=== PATIENT | male | born 1995 | race Caucasian/White ===

== ENCOUNTER 2021-02-08 22:37 | Emergency (ER) | payer BC, SELFPAY ==
[2021-02-08 23:00] VITALS: BP 137/88; PULSE 92; RESP 18; TEMP 37.1; O2SAT 97
[2021-02-08 23:02] VITALS: BP 137/88; PULSE 92; RESP 18; TEMP 37.1; O2SAT 97
--- NOTE | 2021-02-08 23:09 | XRR_ITS ---
PROCEDURE INFORMATION: Exam: XR Chest Exam date and time: 02/08/2021 11:09 PM Age: 25 years old Clinical indication: Cough and shortness of breath; Additional info: Cough, pain with inspiration, left side TECHNIQUE: Imaging protocol: XR of the chest. Views: 1 view. COMPARISON: CR Shoulder 2+ views LEFT* [id number] 10/09/2014 2:20 PM FINDINGS: Lungs: Unremarkable. No consolidation. Pleural spaces: Unremarkable. No pleural effusion. No pneumothorax. Heart/Mediastinum: Unremarkable. No cardiomegaly. Bones/joints: Unremarkable. XR/XR chest 1V portable [id number] IMPRESSION: No acute findings. Radiation Dose CTDIVOL = (mGy): DLP = (mGy-cm)
--- NOTE | 2021-02-08 23:10 | W.ED.GENADLT ---
HPI - General Adult General: Chief complaint: General Medical Stated complaint: Left ABD Pain Time Seen by Provider: 02/08/21 22:43 History of Present Illness: HPI narrative: Patient states had a cough for the last 2 or 3 days and hurts when he coughs or takes a deep breath sometimes on his left rib cage area. Denies any fever chills or any other illness. Pain started today. MD complaint: Rib pain Onset (ago): hour(s) Location: chest Radiation: non-radiation Severity: mild Severity scale (1-10): 2 Quality: sharp Pain Consistency: intermittent Exacerbating factors: other (Cough) Associated symptoms: Reports cough and other (Nasal congestion); Deny chest pain, headache(s), rash or vomiting Review of Systems Const: Denies: fever(s), chills or body aches Eyes: Denies: eye discharge ENMT: Reports: nasal congestion; Denies: throat pain or oral sores Card: Denies: chest pain or dyspnea on exertion Resp: Reports: non-productive cough; Denies: wheezing or stridor GI: Denies: vomiting or diarrhea : Denies: difficulty urinating Musc: Denies: extremity pain Skin/Breast: Denies: rash Neuro: Denies: headache(s) Psych: Denies: anxiety or depression Og/Lymph: Denies: easy bruising Physical Exam Const: COMMON NORMALS: no acute distress (Child appears very well is playful in no distress) and patient oriented x3 GENERAL APPEARANCE: cooperative HENMT: COMMON NORMALS: normocephalic, external ears normal, EAC's normal, TM's normal bilaterally and Normal external nose present HEAD & SCALP: normal to inspection and normocephalic FACE & SINUS: normal facial exam NOSE: Normal external nose present and No nasal discharge present EXTERNAL EAR: Yes external ears normal EXTERNAL AUDITORY CANAL: EAC's normal TYMPANIC MEMBRANE: TM's normal bilaterally MOUTH: Normal oral and palatal mucosa present THROAT: posterior oropharynx normal Eye: COMMON NORMALS: conjunctivae normal GENERAL EYE: appearance normal, both eyes and all related structures CONJUNCTIVA: Yes conjunctivae normal Neck/C-Spine: COMMON NORMALS: no JVD Lymph: LYMPHATIC: no lymphadenopathy noted Chest: COMMONS NORMALS: normal inspection of the chest OTHER: Tenderness left lower rib cage slight no bruising swelling noted. Lungs sound normal. Resp: COMMON NORMALS: normal respiratory effort, No retractions, No use of accessory muscles and clear to auscultation bilaterally AUSCULTATION: clear to auscultation bilaterally Cardio: COMMON NORMALS: no JVD, regular rate and regular rhythm RATE: regular rate RHYTHM: regular rhythm GI: COMMON NORMALS: Normal to inspection, nondistended, normoactive bowel sounds present Extremity: COMMON NORMALS: normal to inspection Neuro: COMMON NORMALS: patient oriented x3 Skin: COMMON NORMALS: no rashes or lesions noted GENERAL SKIN EXAM: no rashes or lesions noted Course Vital Signs: Vital signs: Vital Signs Temperature 98.7 F 02/08/21 23:00 Pulse Rate 92 02/08/21 23:00 Respiratory Rate 18 02/08/21 23:00 Blood Pressure 137/88 02/08/21 23:00 Pulse Oximetry 97 02/08/21 23:00 Coding Level of Care Code ED Textiles Printer for Vipul Smith
[2021-02-08] MEDS: CELEcoxib 200 mg Capsule 400 MG PO (23:30)
[2021-02-08 23:41] VITALS: BP 137/88; PULSE 92; RESP 18; TEMP 37.1; O2SAT 97
== END 2021-02-08 23:33 | disposition home or self-care (01) ==
PROVIDERS: Emergency Provider Nurse Practitioner Family
DX: R10.9 Unspecified abdominal pain (principal)
CPT/HCPCS: 71045; 99283

== ENCOUNTER 2021-09-02 20:20 | Emergency (ER) | payer SELFPAY ==
[2021-09-02 20:40] VITALS: BP 140/87; PULSE 90; RESP 18; TEMP 37.2; O2SAT 98
[2021-09-02 22:09] LABS: Add Urine Microscopic? NO; Charge for UA Resulting for Rev
[2021-09-02 22:10] LABS: Basophils # 0.1 10^3/uL (0.0-0.1); Basophils % 0.7 %; Eosinophils # 0.3 10^3/uL (0.0-0.8); Eosinophils % 3.5 %; Hematocrit 48.9 % (42.0-52.0); Hemoglobin 16.8 g/dL (11.7-16.6); Lymphocytes # 1.8 10^3/uL (0.8-4.8); Lymphocytes % 24.8 %; Mean Corpuscular HGB Conc 34.4 g/dL (30.0-36.0); Mean Corpuscular Hemoglobin 29.4 pg (28.0-34.0); Mean Corpuscular Volume 85.5 fl (80-94); Mean Platelet Volume 9.8 fL (7.4-10.4); Monocytes # 0.5 10^3/uL (0.2-0.9); Monocytes % 6.9 %; Neutrophils # 4.52 10^3/uL (1.8-7.7); Neutrophils % 63.8 %; Nucleated Red Blood Cells % 0 %; Platelet Count 290 10^3/cmm (130-400); Red Blood Count 5.72 10^6/uL (4.1-5.3); Red Cell Distribution Width 11.9 % (12.1-15.1); White Blood Count 7.1 10^3/uL (4.0-10.0)
[2021-09-02 22:20] LABS: Bilirubin Urine 1+ (Negative); Blood Urine Neg (Negative); Glucose Urine UA Norm (Normal); Ketones Urine Negative (Negative); Leukocyte Esterase Urine Negative (Negative); Nitrate Urine Negative (Negative); Protein Urine Neg (Negative); Specific Gravity, Urine 1.025 (1.005-1.030); Urine Appearance Clear (CLEAR); Urine Color Yellow (Yellow); Urobilinogen Urine 4 mg/dL (Negative); pH Urine 5 (5-7)
[2021-09-02 22:27] LABS: Anion Gap 14.9 (5-19); Blood Urea Nitrogen 10 mg/dL (6-20); Calcium 9.5 mg/dL (8.5-10.5); Carbon Dioxide 24 mmol/L (22-29); Chloride 106 mmol/L (98-107); Glomerular Filtration Rate 162.9 mL/min (90-130); Glucose 99 mg/dL (65-115); Osmolality Calculated 291 mOsm/kg (285-295); Potassium 3.9 mmol/L (3.5-5.1); Sodium 141 mmol/L (136-145)
--- NOTE | 2021-09-03 02:14 | ED_ITS ---
HPI - Back Pain/Injury General: Chief Complaint: Back Pain/Injury Stated Complaint: Low back pain Time Seen by Provider: 09/02/21 22:11 History of Present Illness: Patient is a 26-year-old male who comes to the ED with lower back pain. Symptoms started around noon today. He says he was sitting watching TV he started feeling some pain in his lower back that radiates down into his left leg. He rates the pain currently a 10 out of 10. weightbearing or movement of torso causes worsening of symptoms. Denies any weakness to lower extremities, bladder or bowel incontinence or any pelvic anesthesia. Associated symptoms: Deny abdominal pain, chills, dysuria, fatigue, fever(s), hematuria, nausea or vomiting Review of Systems Const: Denies: fever(s), chills or fatigue Eyes: Denies: change in vision or eye discomfort ENMT: Denies: throat pain, odynophagia, nasal discharge or nasal congestion Card: Denies: chest pain, palpitations, edema, swelling of feet/ankles, dyspnea on exertion or orthopnea Resp: Denies: dyspnea, productive cough or non-productive cough GI: Denies: abdominal pain, nausea, vomiting, diarrhea, constipation or hematochezia : Denies: flank pain, difficulty urinating, dysuria or hematuria Musc: Reports: back pain; Denies: neck pain or extremity swelling Skin/Breast: Denies: rash or new lesions Neuro: Denies: headache(s), numbness in extremities or weakness in extremities PFS ED PFSH: Medical History No pertinent family history Surgical History No pertinent past surgical history Physical Exam Const: COMMON NORMALS: no acute distress, patient oriented x3 and alert GENERAL APPEARANCE: cooperative HENMT: COMMON NORMALS: normocephalic HEAD & SCALP: normocephalic MOUTH: Normal oral and palatal mucosa present THROAT: posterior oropharynx normal and uvula midline Eye: COMMON NORMALS: Equal, round and reactive pupils present PUPIL: Yes Equal, round and reactive pupils present Neck/C-Spine: COMMON NORMALS: supple GENERAL: Yes normal visual inspection Resp: COMMON NORMALS: normal respiratory effort, No retractions, No use of accessory muscles and clear to auscultation bilaterally AUSCULTATION: clear to auscultation bilaterally Cardio: COMMON NORMALS: regular rate, regular rhythm, S1 normal heart sound present, S2 normal heart sound present, No gallops present (Cardio), No clicks present (Cardio), No murmurs present (Cardio) and Peripheral pulses 2+ throughout RATE: regular rate RHYTHM: regular rhythm HEART SOUNDS: S1 normal heart sound present and S2 normal heart sound present PERIPHERAL PULSES: Peripheral pulses 2+ throughout GI: COMMON NORMALS: Normal to inspection, nondistended, normoactive bowel sounds present, Soft to palpation, non-tender and no masses PALPATION: Yes Soft to palpation : COMMON NORMALS: Yes no CVA tenderness BLADDER/KIDNEY EXAM: Yes no CVA tenderness Back/Pelvis: COMMON NORMALS: no CVA tenderness LUMBAR SPINE/LOWER BACK: Yes pain with ROM, No lumbar spinal tenderness and Yes paraspinal muscle tenderness Lumbar paraspinal muscle tenderness: bilateral Bilateral lumbar paraspinal muscle tenderness: L4 and L5 Extremity: COMMON NORMALS: normal to inspection Neuro: COMMON NORMALS: patient oriented x3 and moves all extremities SENSORIUM/ORIENTATION: Yes alert Skin: GENERAL SKIN EXAM: dry skin Course Vital Signs: Vital signs: Vital Signs Temperature 98.7 F 09/03/21 03:11 Pulse Rate 86 09/03/21 03:11 Respiratory Rate 18 09/03/21 03:11 Blood Pressure 139/81 09/03/21 03:11 Pulse Oximetry 99 09/03/21 03:11 MDM - Back Pain/Injury Medical Decision Making Patient is a 26-year-old male comes to the ED with lower back pain that radiates down into left leg. Denies any cauda equina symptoms. Denies any acute fall, trauma or injury to cause symptoms. Vitals are stable. Labs are unremarkable. Patient has some bilateral lumbar paraspinal muscle tenderness. No other acute exam findings. Patient diagnosed with lumbar radiculopathy and was given a dose of Toradol, Solu-Medrol and muscle relaxer here in the ED. Patient was discharged home with a prescription for Celebrex, Flexeril and prednisone. Told to follow-up with PCP in the next week for reevaluation. Return to ED precautions given. Patient understood and agreed with plan. Labs I reviewed the patient's lab results. : 09/02/21 21:59 09/02/21 21:59 Laboratory Results WBC 7.1 10^3/uL (4.0-10.0) 09/02/21 21:59 RBC 5.72 10^6/uL (4.1-5.3) H 09/02/21 21:59 Hgb 16.8 g/dL (11.7-16.6) H 09/02/21 21:59 Hct 48.9 % (42.0-52.0) 09/02/21 21:59 MCV 85.5 fl (80-94) 09/02/21 21:59 MCH 29.4 pg (28.0-34.0) 09/02/21 21:59 MCHC 34.4 g/dL (30.0-36.0) 09/02/21 21:59 RDW 11.9 % (12.1-15.1) L 09/02/21 21:59 Plt Count 290 10^3/cmm (130-400) 09/02/21 21:59 MPV 9.8 fL (7.4-10.4) 09/02/21 21:59 Neut % (Auto) 63.8 % 09/02/21 21:59 Lymph % (Auto) 24.8 % 09/02/21 21:59 [place] % (Auto) 6.9 % 09/02/21 21:59 Eos % (Auto) 3.5 % 09/02/21 21:59 Baso % (Auto) 0.7 % 09/02/21 21:59 Neut # (Auto) 4.52 10^3/uL (1.8-7.7) 09/02/21 21:59 Lymph # (Auto) 1.8 10^3/uL (0.8-4.8) 09/02/21 21:59 [place] # (Auto) 0.5 10^3/uL (0.2-0.9) 09/02/21 21:59 Eos # (Auto) 0.3 10^3/uL (0.0-0.8) 09/02/21 21:59 Baso # (Auto) 0.1 10^3/uL (0.0-0.1) 09/02/21 21:59 Nucleated RBC % (auto) 0 % 09/02/21 21:59 Nucleated RBCs # 0.0 /100WBC 09/02/21 21:59 Sodium 141 mmol/L (136-145) 09/02/21 21:59 Potassium 3.9 mmol/L (3.5-5.1) 09/02/21 21:59 Chloride 106 mmol/L (98-107) 09/02/21 21:59 Carbon Dioxide 24 mmol/L (22-29) 09/02/21 21:59 Anion Gap 14.9 (5-19) 09/02/21 21:59 BUN 10 mg/dL (6-20) 09/02/21 21:59 Creatinine 0.6 mg/dL (0.7-1.2) L 09/02/21 21:59 GFR Calculation 162.9 mL/min (90-130) H 09/02/21 21:59 Glucose 99 mg/dL (65-115) 09/02/21 21:59 Calculated Osmolality 291 mOsm/kg (285-295) 09/02/21 21:59 Calcium 9.5 mg/dL (8.5-10.5) 09/02/21 21:59 Urine Color Yellow (Yellow) 09/02/21 21:59 Urine Appearance Clear (CLEAR) 09/02/21 21:59 Urine pH 5 (5-7) 09/02/21 21:59 Ur Specific [place] 1.025 (1.005-1.030) 09/02/21 21:59 Urine Protein Neg (Negative) 09/02/21 21:59 Urine Glucose (UA) Norm (Normal) 09/02/21 21:59 Urine Ketones Negative (Negative) 09/02/21 21:59 Urine Blood Neg (Negative) 09/02/21 21:59 Urine Nitrate Negative (Negative) 09/02/21 21:59 Urine Bilirubin 1+ (Negative) H 09/02/21 21:59 Urine Urobilinogen 4 mg/dL (Negative) H 09/02/21 21:59 Ur Leukocyte Esterase Negative (Negative) 09/02/21 21:59 Discharge Plan Discharge Patient Disposition: Home Clinical Impression: Lumbar radiculopathy Condition: Stable Prescriptions: New prednisone 20 mg tablet 20 mg PO BID 7 Days Qty: 14 0RF Celebrex 100 mg capsule 100 mg PO BID PRN (Reason: pain) Qty: 30 0RF cyclobenzaprine 7.5 mg tablet 7.5 mg PO BID PRN (Reason: muscle spasm) Qty: 20 0RF Discharge Orders: Discharge ED (Routine); Ordered 09/03/21 Ordered By: Danilo Cha Discharge Diet: Regular Discharge Activity: Increase activity as tolerated Patient Instructions: Lumbar Radiculopathy (ED) Activity Restrictions/Additional Instructions: Follow-up with medical provider as directed in the next 5 to 7 days for reevaluation. Take medications as prescribed. Apply cold pack on lower back multiple times throughout the day and perform lower back stretches daily to help with symptoms. Return to the ER or your medical provider if condition worsens. Please read and understand discharge instructions. Thank you for choosing [facility] for your healthcare needs today. Please realize this is an emergency room and that we are providing you with a medical screening exam and this may not be complete and all inclusive of all the testing and or work up that you may need to determine your ailment or severity of your illness. It is very important that you follow up as instructed or that you return to the Emergency Department should you have concerns or if your condition changes or worsens in any way. Coding Level of Care Code ED Money Laundering Investigator for Vipul Smith
[2021-09-03] MEDS: ketorolac 60 mg/2 mL INJ IM (02:56)
[2021-09-03] MEDS: orphenadrine 30 mg/mL Inj 2 mL 60 MG IM (02:56)
[2021-09-03 03:11] VITALS: BP 139/81; PULSE 86; RESP 18; TEMP 37.1; O2SAT 99
== END 2021-09-03 03:12 | disposition home or self-care (01) ==
PROVIDERS: Emergency Medicine; Emergency Provider Physician Assistant
DX: M54.16 Radiculopathy, lumbar region (principal)
CPT/HCPCS: 80048; 81003; 85025; 96372; 99284; J1885; J2360; J2930

== ENCOUNTER 2021-11-17 11:20 | Emergency (ER) | payer SELFPAY ==
[2021-11-17 12:08] VITALS: BP 149/102; PULSE 81; RESP 16; TEMP 36.5; O2SAT 98; BMI 41.4
--- NOTE | 2021-11-17 12:18 | XRR_ITS ---
PROCEDURE INFORMATION: Exam: XR Chest Exam date and time: 11/17/2021 12:31 PM Age: 26 years old Clinical indication: Pain; Angina pectoris; Additional info: Chest pain TECHNIQUE: Imaging protocol: Radiologic exam of the chest. Views: 1 view. COMPARISON: CR (CHEST, ) 02/08/2021 11:15 PM FINDINGS: Lungs: Left lower lobe atelectasis versus minimal infiltrate. Pleural spaces: Unremarkable. No pleural effusion. No pneumothorax. Heart/Mediastinum: Unremarkable. No cardiomegaly. Bones/joints: Unremarkable. XR/XR chest 1V portable [id number] IMPRESSION: Left lower lobe atelectasis versus minimal infiltrate.
--- NOTE | 2021-11-17 12:23 | ECG_ITS ---
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 Measurements Intervals [place] Rate: 86 P: 55 [place]: 145 QRS: 52 QRSD: 93 T: 62 QT: 325 QTc: 389 Interpretive Statements SINUS RHYTHM No previous ECG available for comparison Electronically Signed On 11-17-2021 17:44:51 CDT by Reji Venegas M.D. [id number]
[2021-11-17 12:47] VITALS: BP 146/88; PULSE 92; RESP 18; TEMP 36.7; O2SAT 97
[2021-11-17 14:14] VITALS: BP 161/87; PULSE 78; RESP 16; TEMP 36.7; O2SAT 96
--- NOTE | 2021-11-17 14:18 | ECG_ITS ---
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 Measurements Intervals [place] Rate: 73 P: 51 PA: 139 QRS: 49 QRSD: 92 T: 59 QT: 336 QTc: 372 Interpretive Statements SINUS RHYTHM Compared to ECG 11/17/2021 12:23:20 No significant changes Electronically Signed On 11-17-2021 17:49:18 CDT by Reji Venegas M.D. [id number]
[2021-11-17 14:41] LABS: Basophils # 0.1 10^3/uL (0.0-0.1); Basophils % 1.2 %; Eosinophils # 0.2 10^3/uL (0.0-0.8); Eosinophils % 3.9 %; Hematocrit 46.1 % (42.0-52.0); Hemoglobin 16.3 g/dL (11.7-16.6); Lymphocytes # 1.3 10^3/uL (0.8-4.8); Lymphocytes % 24.4 %; Mean Corpuscular HGB Conc 35.4 g/dL (30.0-36.0); Mean Corpuscular Hemoglobin 29.3 pg (28.0-34.0); Mean Corpuscular Volume 82.8 fl (80-94); Mean Platelet Volume 9.8 fL (7.4-10.4); Monocytes # 0.3 10^3/uL (0.2-0.9); Monocytes % 6.3 %; Neutrophils # 3.28 10^3/uL (1.8-7.7); Nucleated Red Blood Cells % 0 %; Platelet Count 261 10^3/cmm (130-400); Red Blood Count 5.57 10^6/uL (4.1-5.3); Red Cell Distribution Width 12.1 % (12.1-15.1); White Blood Count 5.1 10^3/uL (4.0-10.0)
[2021-11-17 14:56] LABS: Alanine Aminotransferase 53 U/L (0-41); Albumin Level 4.8 g/dL (3.5-5.2); Alkaline Phosphatase 97 U/L (40-130); Anion Gap 17.1 (5-19); Aspartate Amino Transferase 31 U/L (0-40); Blood Urea Nitrogen 9 mg/dL (6-20); Calcium 9.8 mg/dL (8.5-10.5); Carbon Dioxide 24 mmol/L (22-29); Chloride 101 mmol/L (98-107); Globulin 2.6 g/dL (1.3-4.6); Glucose 90 mg/dL (65-115); Osmolality Calculated 284 mOsm/kg (285-295); Potassium 4.1 mmol/L (3.5-5.1); Sodium 138 mmol/L (136-145); Total Bilirubin 0.5 mg/dL (0.15-1.2); Total Protein 7.4 g/dL (6.6-8.7)
[2021-11-17 15:04] LABS: Troponin(5th) Baseline 6 ng/L (0-15)
[2021-11-17 15:07] LABS: Slide Review Slide Review Perform
[2021-11-17 15:44] VITALS: BP 131/84; PULSE 80; RESP 16; O2SAT 97
--- NOTE | 2021-11-17 16:22 | W.ED.CHESTPA ---
HPI - Chest Pain General: Chief Complaint: Chest Pain Stated Complaint: Chest pains Time Seen by Provider: 11/17/21 15:29 History of Present Illness: Patient is a 26-year-old male comes to the ED with chest pain. Symptoms started last night after he ate some spaghetti. He describes the pain as a stabbing sharp type pain in the middle of his chest. Pain radiates to his back. He rates the pain currently a 10 out of 10. Denies any diaphoresis, nausea or vomiting or shortness of breath. He has never had chest pain like this before. Associated symptoms: Deny abdominal pain, dyspnea, fever(s), nausea, palpitations or vomiting Review of Systems Const: Denies: fever(s), chills or fatigue Eyes: Denies: change in vision or eye discomfort ENMT: Denies: throat pain, odynophagia, nasal discharge or nasal congestion Card: Reports: chest pain; Denies: palpitations, edema, swelling of feet/ankles, dyspnea on exertion or orthopnea Resp: Denies: dyspnea, productive cough or non-productive cough GI: Denies: abdominal pain, nausea, vomiting, diarrhea, constipation or hematochezia : Denies: flank pain, difficulty urinating, dysuria or hematuria Musc: Denies: neck pain, back pain or extremity swelling Skin/Breast: Denies: rash or new lesions Neuro: Denies: headache(s), numbness in extremities or weakness in extremities PFS ED PFSH: Medical History No pertinent family history Surgical History No pertinent past surgical history Physical Exam Const: COMMON NORMALS: no acute distress, patient oriented x3 and alert GENERAL APPEARANCE: cooperative and comfortable HENMT: COMMON NORMALS: normocephalic HEAD & SCALP: normocephalic MOUTH: Normal oral and palatal mucosa present THROAT: posterior oropharynx normal and uvula midline Neck/C-Spine: COMMON NORMALS: supple GENERAL: Yes normal visual inspection Resp: COMMON NORMALS: normal respiratory effort, No retractions, No use of accessory muscles and clear to auscultation bilaterally AUSCULTATION: clear to auscultation bilaterally Cardio: COMMON NORMALS: regular rate, regular rhythm, S1 normal heart sound present, S2 normal heart sound present, No gallops present (Cardio), No clicks present (Cardio), No murmurs present (Cardio) and Peripheral pulses 2+ throughout RATE: regular rate RHYTHM: regular rhythm HEART SOUNDS: S1 normal heart sound present and S2 normal heart sound present PERIPHERAL PULSES: Peripheral pulses 2+ throughout GI: COMMON NORMALS: Normal to inspection, nondistended, normoactive bowel sounds present, Soft to palpation, non-tender and no masses PALPATION: Yes Soft to palpation : COMMON NORMALS: Yes no CVA tenderness BLADDER/KIDNEY EXAM: Yes no CVA tenderness Back/Pelvis: COMMON NORMALS: no CVA tenderness Extremity: COMMON NORMALS: normal to inspection Neuro: COMMON NORMALS: patient oriented x3 SENSORIUM/ORIENTATION: Yes alert GAIT: Yes Normal gait present Skin: GENERAL SKIN EXAM: dry skin Course ED course: After patient received GI cocktail his chest pain improved greatly and is feeling a lot better. Vital Signs: Vital signs: Vital Signs Temperature 98.1 F 11/17/21 14:14 Pulse Rate 77 11/17/21 17:15 Respiratory Rate 16 11/17/21 17:15 Blood Pressure 157/80 11/17/21 17:15 Pulse Oximetry 97 11/17/21 17:15 Oxygen Delivery Me thod 11/17/21 17:15 MDM - Chest Pain Medical Decision Making Patient is a 26-year-old male comes to the ED with chest pain that started last night. Pain was located in the of his chest and he describes as a sharp pain that started after he ate spaghetti last night. Chest pain worsens when he lays down. Vitals are stable patient appears nontoxic in no acute distress or pain. Rest of exam is benign. CBC and CMP were unremarkable. Troponin negative. Chest x-ray shows a little left lower lobe atelectasis but no other acute finding. EKG showed normal sinus rhythm with no ST segment ovation depression seen. Patient was given GI cocktail and his symptoms improved greatly. Chest pain likely related to acid reflux. He was stable for discharge home and sent home with a prescription for Pepcid. Told to follow-up with PCP within the next 7 to 10 days for reevaluation. Return to ED precautions given. Patient understood and agreed with plan. Lab Data I reviewed the patient's lab results. : 11/17/21 14:19 11/17/21 14:19 Radiology Impressions Chest X-Ray 11/17/21 12:18 IMPRESSION: Left lower lobe atelectasis versus minimal infiltrate. Laboratory Results WBC 5.1 10^3/uL (4.0-10.0) 11/17/21 14:19 RBC 5.57 10^6/uL (4.1-5.3) H 11/17/21 14:19 Hgb 16.3 g/dL (11.7-16.6) 11/17/21 14:19 Hct 46.1 % (42.0-52.0) 11/17/21 14:19 MCV 82.8 fl (80-94) 11/17/21 14:19 MCH 29.3 pg (28.0-34.0) 11/17/21 14:19 MCHC 35.4 g/dL (30.0-36.0) 11/17/21 14:19 RDW 12.1 % (12.1-15.1) 11/17/21 14:19 Plt Count 261 10^3/cmm (130-400) 11/17/21 14:19 MPV 9.8 fL (7.4-10.4) 11/17/21 14:19 Neut % (Auto) 64.0 % 11/17/21 14:19 Lymph % (Auto) 24.4 % 11/17/21 14:19 [place] % (Auto) 6.3 % 11/17/21 14:19 Eos % (Auto) 3.9 % 11/17/21 14:19 Baso % (Auto) 1.2 % 11/17/21 14:19 Neut # (Auto) 3.28 10^3/uL (1.8-7.7) 11/17/21 14:19 Lymph # (Auto) 1.3 10^3/uL (0.8-4.8) 11/17/21 14:19 [place] # (Auto) 0.3 10^3/uL (0.2-0.9) 11/17/21 14:19 Eos # (Auto) 0.2 10^3/uL (0.0-0.8) 11/17/21 14:19 Baso # (Auto) 0.1 10^3/uL (0.0-0.1) 11/17/21 14:19 Nucleated RBC % (auto) 0 % 11/17/21 14:19 Nucleated RBCs # 0.0 /100WBC 11/17/21 14:19 Sodium 138 mmol/L (136-145) 11/17/21 14:19 Potassium 4.1 mmol/L (3.5-5.1) 11/17/21 14:19 Chloride 101 mmol/L (98-107) 11/17/21 14:19 Carbon Dioxide 24 mmol/L (22-29) 11/17/21 14:19 Anion Gap 17.1 (5-19) 11/17/21 14:19 BUN 9 mg/dL (6-20) 11/17/21 14:19 Creatinine 0.5 mg/dL (0.7-1.2) L 11/17/21 14:19 GFR Calculation 201.0 mL/min (90-130) H 11/17/21 14:19 Glucose 90 mg/dL (65-115) 11/17/21 14:19 Calculated Osmolality 284 mOsm/kg (285-295) L 11/17/21 14:19 Calcium 9.8 mg/dL (8.5-10.5) 11/17/21 14:19 Total Bilirubin 0.5 mg/dL (0.15-1.2) 11/17/21 14:19 AST 31 U/L (0-40) 11/17/21 14:19 ALT 53 U/L (0-41) H 11/17/21 14:19 Alkaline Phosphatase 97 U/L (40-130) 11/17/21 14:19 Troponin T Baseline 6 ng/L (0-15) 11/17/21 14:19 Troponin T 120 Minute 6.00 ng/L (0-15) 11/17/21 16:40 Delta Troponin T 0 ABS# (0-10) 11/17/21 16:40 Total Protein 7.4 g/dL (6.6-8.7) 11/17/21 14:19 Albumin 4.8 g/dL (3.5-5.2) 11/17/21 14:19 Globulin 2.6 g/dL (1.3-4.6) 11/17/21 14:19 EKG Data EKG 1: EKG interpretation date: 08/19/22 Interpretation: Sinus rhythm, 73 bpm, no ST segment elevation or depression seen. Discharge Plan Discharge Patient Disposition: Home Clinical Impression: Acid reflux Qualifiers: Esophagitis presence: esophagitis presence not specified Qualified Code(s): K21.9 - Gastro-esophageal reflux disease without esophagitis Condition: Stable Prescriptions: New Pepcid 20 mg tablet 20 mg PO BID 42 Days Qty: 84 0RF No Action Celebrex 100 mg capsule 100 mg PO BID PRN (Reason: pain) Qty: 30 0RF cyclobenzaprine 7.5 mg tablet 7.5 mg PO BID PRN (Reason: muscle spasm) Qty: 20 0RF Discharge Orders: Discharge ED (Routine); Ordered 11/17/21 Ordered By: Danilo Cha Discharge Diet: Regular Discharge Activity: Increase activity as tolerated Patient Instructions: GERD (Gastroesophageal Reflux Disease) (DC) Activity Restrictions/Additional Instructions: Follow-up with medical provider as directed in the next 5 to 7 days for reevaluation. Take medications as prescribed. Return to the ER or your medical provider if condition worsens. Please read and understand discharge instructions. Thank you for choosing [facility] for your healthcare needs today. Please realize this is an emergency room and that we are providing you with a medical screening exam and this may not be complete and all inclusive of all the testing and or work up that you may need to determine your ailment or severity of your illness. It is very important that you follow up as instructed or that you return to the Emergency Department should you have concerns or if your condition changes or worsens in any way. Coding Level of Care Code ED Finish Production Manager for Vipul Smith Exam Comprehensive
[2021-11-17] MEDS: lidocaine 2% viscous 15 ML, aluminum-mag hydrox-simethicon 30 ML, sucralfate oral liq 1 GM PO (16:32)
[2021-11-17 17:15] VITALS: BP 157/80; PULSE 77; RESP 16; RESP 18; O2SAT 97
[2021-11-17 17:18] LABS: Troponin 5 2HR Delta 0 ABS# (0-10)
== END 2021-11-17 17:28 | disposition home or self-care (01) ==
PROVIDERS: Emergency Medicine; Emergency Provider Physician Assistant
DX: K21.9 Gastro-esophageal reflux disease without esophagitis (principal)
CPT/HCPCS: 36415; 71045; 80053; 84484; 85025; 93005; 99285

== ENCOUNTER 2022-09-24 13:10 | Emergency (ER) | payer MEDICAID, SELFPAY ==
[2022-09-24 13:13] VITALS: BP 150/89; PULSE 82; RESP 14; TEMP 36.9; O2SAT 97; BMI 46.6
--- NOTE | 2022-09-24 13:44 | CT_ITS ---
WS: [id number] CT FACIAL BONES HISTORY: left facial swelling. TECHNIQUE: Images obtained from the supraorbital location through the mandible. Soft tissue and bone windows are reviewed. Coronal and sagittal reformats have also been submitted. DLP: 629.[address] scans at [facility] use at least one of these dose optimization techniques: automated e xposure control; mA and/or kV adjustment per patient size (includes targeted exams where dose is matc hed to clinical indication); or iterative reconstruction. COMPARISON: None available. Contrast: Omnipaque 350; 100 mL IV. Focal mild soft tissue inflammatory mass centered along the anterior LEFT maxillary cavity adjacent t o the nose. The soft tissue inflammatory structure measures 10 x 24 mm. There is no associated dental caries. This inflammatory process is separate from the parotid duct. Neither parotid gland is enlarged. Submandibular glands are normal. Bilateral sinus disease. Mucoperiosteal thickening with mucous retention cysts in the maxillary sinus es. Visualized skull base is negative. No destructive bone lesions. No fractures. CT/CT facial bones w con [id number] IMPRESSION: 1. Inflammatory mass measuring 10 x 24 mm along the anterior medial LEFT maxil clovis antrum adjacent to the nasal bones. Most consistent with phlegmonous or in flammatory process. No abscess. 2. There is no underlying dental caries or fracture associated with the inflam matory mass. The adjacent parotid duct is normal. May be an associated phlegmon developing from a skin lesion.
--- NOTE | 2022-09-24 13:51 | W.ED.EYEPROB ---
HPI - Eye Problem General: Chief complaint: Eye Problems Stated complaint: left eye issues Time Seen by Provider: 09/24/22 13:19 Source: patient Mode of arrival: ambulatory Limitations: no limitations History of Present Illness: Patient presents to the emergency department today for evaluation and treatment of left-sided facial swelling. Patient states he only recently noticed it developing. He denies pain. He has not noticed any dental pain or sinus issues. He denies nasal congestion or drainage from the left nasal passage. He has not noticed any change in his vision or eye pain. He denies ear pain. No recent fevers. He denies any known injuries. He did have some swelling underneath his right eye back in May for unknown reason but, states it spontaneously resolved without issues. Review of Systems General: Reports: 10 or more systems reviewed and unremarkable except in HPI and below PFSH ED PFSH: Medical History No pertinent family history Surgical History No pertinent past surgical history Physical Exam Const: COMMON NORMALS: no acute distress, patient oriented x3 and alert HENMT: OTHER: TMs are translucent bilaterally without erythema or bulging. Patient has relatively poor dentition but, no signs of any active dental caries, broken teeth, or abscess along the gumline. Patient is nontender to the gumline of the left upper jaw. Patient has no occlusion of the left nasal passage. Patient has swelling of the left medial cheek up against the nose. There is no erythema, abrasions, bruising, or obvious signs of puncture wounds at the site. On palpation, the area is somewhat indurated with some demarcation between indurated skin and nonindurated skin. Eye: COMMON NORMALS: Equal, round and reactive pupils present, EOMs intact bilaterally and conjunctivae normal CONJUNCTIVA: Yes conjunctivae normal PUPIL: Yes Equal, round and reactive pupils present Neck/C-Spine: COMMON NORMALS: no JVD Lymph: LYMPHATIC: no lymphadenopathy noted Resp: COMMON NORMALS: normal respiratory effort, No retractions and No use of accessory muscles Cardio: COMMON NORMALS: no JVD and regular rate RATE: regular rate : COMMON NORMALS: Yes no CVA tenderness BLADDER/KIDNEY EXAM: Yes no CVA tenderness Back/Pelvis: COMMON NORMALS: no CVA tenderness, thoracic and lumbar spine normal to inspection and thoraco-lumbar ROM normal Extremity: COMMON NORMALS: normal to inspection, full ROM and no pedal edema Neuro: COMMON NORMALS: patient oriented x3 SENSORIUM/ORIENTATION: Yes alert Skin: COMMON NORMALS: no rashes or lesions noted and turgor normal GENERAL SKIN EXAM: no rashes or lesions noted and turgor normal Course Vital Signs: Vital signs: Vital Signs Temperature 98.4 F 09/24/22 13:13 Pulse Rate 82 09/24/22 13:13 Respiratory Rate 14 09/24/22 13:13 Blood Pressure 150/89 09/24/22 13:13 Pulse Oximetry 97 09/24/22 13:13 Oxygen Delivery Me thod Room Air 09/24/22 13:13 MDM - Eye Problem Medical Decision Making Patient presents today with onset of left-sided facial swelling. He had no known trauma and skin inspection showed no obvious wounds. Given the location of the swelling on his cheek with mild swelling extending up towards the medial corner of the left lower eyelid we did proceed on with a CT examination. CT found most likely a phlegmonous process which did not appear to originate from dental causes or sinus causes. For that reason they do suspect skin lesion as originating cause. After discussing with Dr. Alarcon, patient was started on clindamycin and will request follow-up through ENT. Discussed this finding with the patient. Also informed him of the need to start antibiotics and the ENT follow-up. He was given return precautions for change or worsening in his condition including fevers, changes in vision, eye pain, redness of the skin of the face, or continued swelling. Patient verbalizes his understanding and agreement to the treatment plan. Differential Diagnosis Likely conjunctivitis and periorbital cellulitis (Sinus abscess, dental abscess) Lab Data Radiology Impressions Face CT 09/24/22 13:44 IMPRESSION: 1. Inflammatory mass measuring 10 x 24 mm along the anterior medial LEFT maxillary antrum adjacent to the nasal bones. Most consistent with phlegmonous or inflammatory process. No abscess. 2. There is no underlying dental caries or fracture associated with the inflammatory mass. The adjacent parotid duct is normal. May be an associated phlegmon developing from a skin lesion. Discharge Plan Discharge Patient Disposition: Home Clinical Impression: Phlegmon, Facial swelling Condition: Stable Prescriptions: New clindamycin HCl 300 mg capsule 300 mg PO Q6H 7 Days Qty: 28 0RF No Action Celebrex 100 mg capsule 100 mg PO BID PRN (Reason: pain) Qty: 30 0RF cyclobenzaprine 7.5 mg tablet 7.5 mg PO BID PRN (Reason: muscle spasm) Qty: 20 0RF Discharge Orders: Discharge ED (Routine); Ordered 09/24/22 Ordered By: Antonieta Treviño Discharge Diet: Usual diet Discharge Activity: Increase activity as tolerated Activity Restrictions/Additional Instructions: CT examination today did reveal an area they are calling a phlegmon. This is an area of inflammation and infection that is not walled off as an abscess is. That is the reason why was not able to palpate an area of abscess consistent with needing an incision and drainage today. It does not appear to have originated from any dental issues or from your sinus cavity. They suspect a possible skin injury as the culprit. Either way, we are starting you on antibiotics for treatment. I have also requested a follow-up appointment with her research laboratory specialist for a recheck to make sure that this area of swelling is improving with the treatment plan. However, if you continue to have facial swelling, your skin turns red, you have any difficulty breathing through your nose, you have purulent drainage from your left nasal passage, or have any pressure on your eye causing pain or visual changes you need to be seen and reevaluated here through the emergency department. Coding Level of Care Code ED Engineer Design And Construction for [employer]ul Smith
[2022-09-24] MEDS: iohexol 350 mg/mL 500 mL Btl (per mL) IV (14:00)
--- NOTE | 2022-09-24 16:02 | PC.SOCIAL ---
Addendum entered by Nery Lauren 10/11/22 14:49: Patient had a follow up appointment scheduled with ENT - patient did attend appointment. Original Note: ENT Referral Referral to ENT at this time. Clinic to contact patient with appt date and time.
== END 2022-09-24 14:58 | disposition home or self-care (01) ==
PROVIDERS: Emergency Provider Physician Assistant
DX: M79.89 Other specified soft tissue disorders (principal); L02.01 Cutaneous abscess of face
CPT/HCPCS: 70487; 99285; Q9967

== ENCOUNTER 2022-11-13 16:08 | Emergency (ER) | payer MEDICAID, SELFPAY ==
[2022-11-13 16:15] VITALS: BP 132/86; PULSE 79; RESP 18; TEMP 36.9; O2SAT 97; BMI 45.8
--- NOTE | 2022-11-13 16:49 | ED_ITS ---
HPI - Skin/Abscess/Foreign Bdy General: Chief complaint: Skin/Abscess/Foreign Body Stated complaint: swollen lip, unknown reason Time Seen by Provider: 11/13/22 16:22 Source: patient Mode of arrival: ambulatory Limitations: no limitations History of Present Illness: Patient is a 27-year-old male who presents to ED today with a complaint of upper lip swelling. He states he first noticed the swelling yesterday as the upper lip swelled for a brief amount of time before completely subsiding on its own. He states the lip then began to really swell later that evening and states he woke up this morning with significant swelling. He states throughout the day swelling has seemed to improve. He did take Benadryl with improvement. He is not having any pain to the lip. He denies dental pain. He is not having any difficulty articulating, eating, drinking, swallowing. No drooling. No other symptoms of allergic reaction. Denies any new food/chemical/household exposures. Nothing new he has applied to his face. He is not on any prescription medications. MD complaint: other (lip swelling) Onset (ago): day(s) (yesterday) Location: face (upper lip) Severity: mild Relieving factors: other (benadryl) Exacerbating factors: none Context: none Associated symptoms: Reports no associated symptoms; Deny chills, fever(s), nausea or vomiting Treatments prior to arrival: Benadryl Review of Systems Const: Denies: fever(s), chills, body aches, fatigue or malaise Eyes: Denies: change in vision, blurry vision, photophobia, floaters or seeing flashes ENMT: Reports: swelling of lips/tongue; Denies: throat pain, uvular edema, enlarged tonsils, odynophagia, hoarseness, mouth pain, oral sores, bleeding gums or dental pain Card: Denies: chest pain Resp: Denies: dyspnea GI: Denies: nausea or vomiting Musc: Denies: neck pain Skin/Breast: Denies: rash Neuro: Denies: headache(s) PFS ED PFSH: Medical History No pertinent family history Surgical History No pertinent past surgical history Social History Smoking and tobacco status: current every day smoker e-cigarettes E-Cigarette Details: e-cigarette E-cig/vape details: unknown if has nicotine Alcohol intake: current Alcohol intake frequency: holidays/special occasions only Physical Exam Const: COMMON NORMALS: no acute distress, patient oriented x3, no limitations, alert and well nourished GENERAL APPEARANCE: cooperative ORIENTATION/CONSCIOUSNESS: Yes awake, Yes oriented to person, Yes oriented to place and Yes oriented to time HENMT: COMMON NORMALS: normocephalic, atraumatic and Normal external nose present HEAD & SCALP: normal to inspection, normocephalic and atraumatic FACE & SINUS: normal facial exam (apart from upper lip swelling); no erythema, no edema and no fluctuance NOSE: Normal external nose present MOUTH: Normal oral and palatal mucosa present, tongue normal and lip abnormal (upper lip swelling) TEETH & GINGIVA: Yes poor dentition and Yes other (no obvious abscess or gingival fluctuance noted ) THROAT: posterior oropharynx normal, tonsils normal and uvula midline; no uvular edema Eye: GENERAL EYE: appearance normal, both eyes and all related structures Neck/C-Spine: COMMON NORMALS: no lymphadenopathy GENERAL: No anterior neck swelling and No submandibular swelling Neuro: COMMON NORMALS: patient oriented x3 SENSORIUM/ORIENTATION: Yes alert, Yes oriented to person, Yes oriented to place and Yes oriented to time Course Vital Signs: Vital signs: Vital Signs Temperature 98.4 F 11/13/22 16:15 Pulse Rate 79 11/13/22 16:15 Respiratory Rate 18 11/13/22 16:15 Blood Pressure 132/86 11/13/22 16:15 Pulse Oximetry 97 11/13/22 16:15 Oxygen Delivery Me thod Room Air 11/13/22 16:15 MDM - Skin/Abscess/Foreign Bdy Medicial Decision Making Patient is here for upper lip swelling beginning yesterday. He does state the swelling has improved on its own and has been responsive to [id number] Benadryl. He does not have any pain. I do not see any infection source. No dental abscess. Based on history it certainly sounds allergic. At this time I would recommend he continue antihistamines as it seems to be responsive to this. Return ED precautions given. Discharge Plan Discharge Patient Disposition: Home Clinical Impression: Swelling of upper lip Condition: Stable Prescriptions: No Action clindamycin HCl 300 mg capsule 300 mg PO Q6H Discharge Orders: Discharge ED (Routine); Ordered 11/13/22 Ordered By: Brandy Luna Activity Restrictions/Additional Instructions: As you have indicated lip swelling seems to benefit from [id number] antihistamines such as Benadryl so I recommend you continue taking this. You may take up to 50 mg every 4-6 hours as needed. You may also apply ice to the lip for 15 to 20 minutes every 1-2 hours. You need to return to the emergency department for worsening lip swelling, difficulty eating, drinking, swallowing, controlling your saliva, any redness or warmth spreading into your face, or any other concerns you may have. Coding Level of Care Code ED Electronic Field Service Engineer for [employer]ul Smith
== END 2022-11-13 17:04 | disposition home or self-care (01) ==
PROVIDERS: Emergency Provider Physician Assistant
DX: M79.89 Other specified soft tissue disorders (principal); F17.290 Nicotine dependence, other tobacco product, uncomplicated
CPT/HCPCS: 99283

== ENCOUNTER 2023-01-19 00:24 | Emergency (ER) | payer MEDICAID, SELFPAY ==
[2023-01-19 00:26] VITALS: BP 148/88; PULSE 93; RESP 18; TEMP 36.8; O2SAT 96; BMI 47.3
--- NOTE | 2023-01-19 00:37 | XRR_ITS ---
PROCEDURE INFORMATION: Exam: XR Right Shoulder Exam date and time: 01/19/2023 1:39 AM Age: 27 years old Clinical indication: Injury or trauma; Blunt trauma (contusions or hematomas); Patient HX: C/O worsening right shoulder pain after a fall yesterday. ; Additional info: R shoulder pain TECHNIQUE: Imaging protocol: Radiologic exam of the right shoulder. Views: 2 or more views. AP INT/ EXT ROTATION, SCAPULAR Y COMPARISON: CR XR chest 1V portable [id number] 11/17/2021 12:31 PM FINDINGS: Bones/joints: There is normal alignment at the glenohumeral joint. There are no fractures or dislocations. The acromioclavicular joint and coracoclavicular spaces are intact. The visualized scapula and clavicle are unremarkable. Soft tissues: There are no radiopaque foreign bodies or soft tissue swelling. Notes: If there is further concern, follow-up radiographs or MRI of the shoulder may be performed for complete assessment. XR/XR shoulder RT min 2V* [id number] IMPRESSION: No fractures or dislocations of right shoulder.
[2023-01-19 02:31] VITALS: RESP 16; O2SAT 97
[2023-01-19] MEDS: oxyCODONE-APAP 5-325 mg Tablet 2 TAB PO (02:31)
[2023-01-19 02:36] VITALS: BP 161/87; PULSE 94; RESP 16; O2SAT 98
[2023-01-19 02:38] VITALS: PULSE 94
--- NOTE | 2023-01-19 02:43 | ED_ITS ---
HPI - Extremity Problem General: Chief complaint: Extremity Injury, Upper Stated complaint: right shoulder pain Time Seen by Provider: 01/19/23 01:58 History of Present Illness: 27-year-old male who fell yesterday afternoon striking his right shoulder. He complains of posterior lateral shoulder pain, and significant pain with any movement of the arm particularly abduction. No numbness or tingling. No head or neck injury. Associated symptoms: Deny chest pain or fever(s) Review of Systems Const: Denies: fever(s) Card: Denies: chest pain Resp: Denies: dyspnea GI: Denies: vomiting Musc: Denies: neck pain Neuro: Denies: headache(s) PFS ED PFSH: Medical History No pertinent family history Surgical History No pertinent past surgical history Social History Smoking and tobacco/nicotine status: current every day tobacco/nicotine user e- cigarettes E-Cigarette Details: e-cigarette E-cig/vape details: unknown if has nicotine Alcohol intake: current Alcohol intake frequency: holidays/special occasions only Physical Exam Const: COMMON NORMALS: no acute distress GENERAL APPEARANCE: cooperative; not ill appearing and not frail appearing HENMT: COMMON NORMALS: normocephalic, atraumatic and Normal external nose present HEAD & SCALP: normocephalic and atraumatic FACE & SINUS: normal facial exam and face symmetric NOSE: Normal external nose present Eye: COMMON NORMALS: Equal, round and reactive pupils present and EOMs intact bilaterally PUPIL: Yes Equal, round and reactive pupils present Neck/C-Spine: GENERAL: Yes trachea midline Chest: CHEST: Yes Symmetrical chest wall rise Resp: COMMON NORMALS: normal respiratory effort, No retractions, No use of accessory muscles and clear to auscultation bilaterally AUSCULTATION: clear to auscultation bilaterally Cardio: COMMON NORMALS: regular rate and regular rhythm RATE: regular rate RHYTHM: regular rhythm Extremity: COMMON NORMALS: no pedal edema NARRATIVE EXTREMITY EXAM: Examination of the right shoulder reveals no deformity. There are some tenderness over the rotator cuff footprint. No clavicular tenderness. No anterior joint line tenderness. There is pain with any active motion, but worst with active abduction of the shoulder. Pulses distally are normal. Sensations intact. Neuro: LAURA COMA SCALE: document GCS findings [place] coma scale eye opening: Spontaneous [place] coma scale verbal response: Orientated [place] coma scale motor response: Obey commands Laura coma scale total score: 15 SENSORY EXAM: Yes extremities (intact) Psych: COMMON NORMALS: speech normal SPEECH: Yes normal speech Skin: COMMON NORMALS: no rashes or lesions noted GENERAL SKIN EXAM: no rashes or lesions noted Course Vital Signs: Vital signs: Vital Signs Temperature 98.3 F 01/19/23 00:26 Pulse Rate 94 01/19/23 02:38 Respiratory Rate 16 01/19/23 02:36 Blood Pressure 161/87 01/19/23 02:36 Pulse Oximetry 98 01/19/23 02:36 Oxygen Delivery Me thod Room Air 01/19/23 02:36 MDM - Extremity (Nontraumatic) Medical Decision Making X-rays negative for fracture dislocation. AC joint is intact. Likely cuff strain. He is placed in a sling for comfort, close outpatient follow-up. Warning signs given. XR interpretation done by ED provider, pending radiology final review Discharge Plan Discharge Patient Disposition: Home Clinical Impression: Rotator cuff strain Condition: Stable Prescriptions: New hydrocodone-acetaminophen 5-325 mg tablet 1 tab PO Q8H PRN (Reason: pain) Qty: 7 0RF ketorolac 10 mg tablet 10 mg PO TID PRN (Reason: pain) Qty: 10 0RF No Action clindamycin HCl 300 mg capsule 300 mg PO Q6H Discharge Orders: Discharge ED (Routine); Ordered 01/19/23 Ordered By: Adrian Valencia Referrals: Belle Pavon NP [Primary Care Provider] - 4-7 days Patient Instructions: Rotator Cuff Injury (ED), Opioid Safety, Pain Management Activity Restrictions/Additional Instructions: Do not sling for more than 1 week. Ice to the shoulder will help with pain. Alternate pain medications prescribed as directed. Increase your shoulder movement as soon as you tolerate. Follow-up with your doctor next week. Coding Level of Care Code ED Engraver Apprentice Decorative for Vipul Smith
[2023-01-19 02:48] VITALS: BP 161/87; PULSE 104; RESP 16; O2SAT 99
== END 2023-01-19 02:50 | disposition home or self-care (01) ==
PROVIDERS: Emergency Provider Emergency Medicine; PCP Nurse Practitioner Family
DX: S46.011A Strain of muscle(s) and tendon(s) of the rotator cuff of right shoulder, initial encounter (principal); F17.290 Nicotine dependence, other tobacco product, uncomplicated; W19.XXXA Unspecified fall, initial encounter
CPT/HCPCS: 29240; 73030; 99283

== ENCOUNTER 2023-05-20 18:21 | Emergency (ER) | payer MEDICAID, SELFPAY ==
[2023-05-20 18:33] VITALS: BP 143/77; PULSE 85; RESP 16; TEMP 36.7; O2SAT 97; BMI 47.7
--- NOTE | 2023-05-20 18:38 | XRR_ITS ---
PROCEDURE INFORMATION: Exam: XR Left Hip Exam date and time: 05/20/2023 7:06 PM Age: 27 years old Clinical indication: Left hip; Patient HX: Lt hip pain no trauma TECHNIQUE: Imaging protocol: Radiologic exam of the left hip. Views: 2 or 3 views hip with pelvis when performed. COMPARISON: CR XR lumbar spine 2-3V* [id number] 01/22/2018 9:50 AM FINDINGS: Bones/joints: Unremarkable. No acute fracture. Soft tissues: Unremarkable. XR/XR hip LT 2-3V wo/w pel* [id number] IMPRESSION: No acute findings.
--- NOTE | 2023-05-20 19:43 | ED_ITS ---
HPI - Extremity Problem General: Chief complaint: Extremity Injury, Lower Stated complaint: Left Leg pain Time Seen by Provider: 05/20/23 18:45 Source: patient Mode of arrival: ambulatory Limitations: no limitations History of Present Illness: 27yo male here with a tingling and burni ng sensation to the front of his left thigh area that has been ongoing for the past several days. Patient reports hugh t he is unsure when it started. States it is mostly at night that he notices the pain and burning. Patient reports he has not taken any medication for the discomfort. He states nothing makes it better and nothing makes it worse. He reports he does not notice the pain and discomfort during the day. Patient denies fall, trauma, known injury, any other concerns at this time. Associated symptoms: Deny fever(s) Review of Systems Const: Denies: fever(s) or chills Musc: Reports: extremity pain (burning sensation left thigh); Denies: back pain, extremity swelling or limited range of motion Neuro: Denies: weakness in extremities or difficulty walking COUNT INCLUDES THE [facility] ED PFSH: Medical History No pertinent family history Surgical History No pertinent past surgical history Social History Smoking and tobacco/nicotine status: current every day tobacco/nicotine user e- cigarettes E-Cigarette Details: e-cigarette E-cig/vape details: unknown if has nicotine Alcohol intake: current Alcohol intake frequency: holidays/special occasions only Physical Exam Const: COMMON NORMALS: no acute distress and alert GENERAL APPEARANCE: cooperative and comfortable OTHER: Patient is ambulatory to [facility] for examination with no difficulty. He is able to give history with no difficulty. He is able to make position changes unassisted. No family is at bedside HENMT: COMMON NORMALS: normocephalic HEAD & SCALP: normocephalic Eye: GENERAL EYE: appearance normal, both eyes and all related structures Chest: CHEST: Yes Symmetrical chest wall rise Resp: COMMON NORMALS: normal respiratory effort Extremity: COMMON NORMALS: full ROM and capillary refill normal LEFT LOWER EXTREMITY: Yes upper leg Left upper leg: No palpation and Yes neurovascular exam (sensation intact) OTHER: FROM of the left lower extremity. No increased pain with dorsiflexion/plantarflexion of the left foot. No increase in pain with leg raise or with palpation. Capillary refill < 3 sec Neuro: SENSORIUM/ORIENTATION: Yes alert GAIT: Yes Normal gait present Psych: ATTITUDE: Yes calm Course Vital Signs: Vital signs: Vital Signs Temperature 98.1 F 05/20/23 18:33 Pulse Rate 85 05/20/23 18:33 Respiratory Rate 16 05/20/23 18:33 Blood Pressure 143/77 05/20/23 18:33 Pulse Oximetry 97 05/20/23 18:33 Oxygen Delivery Me thod Room Air 05/20/23 18:33 MDM - Extremity (Nontraumatic) Medical Decision Making 27yo male here with intermittent tingling and burning sensation to the left thigh that has been ongoing for the past several days. Patient reports it generally only happens in the evening times whether he is sitting or laying. Patient states he has not yet taken any medication for his discomfort. Patient denies any known injury, fall, trauma, previous incidences, back pain, incontinence, groin numbness/tingling, extremity weakness. Patient is nontoxic in appearance. Vital signs are stable. Differential diagnosis include: Muscle strain, nerve injury, radiculopathy, herpes zoster No fracture or acute abnormality noted on left hip x-ray. Discussed these findings with patient. Patient does have full range of motion with no difficulty. He denies any rash or tenderness to the area. Discussed with patient this is likely nerve pain, potentially from radiculopathy. Patient did receive high-dose ibuprofen and tizanidine while in the emergency department. Prescriptions of both were sent to patient's pharmacy, sedation precautions provided. Recommend patient continue to monitor his pain closely. Advised to follow-up with primary care within the next week for recheck, sooner if needed. Recommend return to the emergency department if any rapid worsening symptoms, incontinence, groin numbness/tingling, lower extremity weakness, and as needed. Patient states understanding and has no further questions or concerns at this time. Medical Records I reviewed the patient's medical records. Lab Data Radiology Impressions Hip/Pelvis X-Ray 05/20/23 18:38 IMPRESSION: No acute findings. All radiology interpretation(s) finalized by discharge Discharge Plan Discharge Patient Disposition: Home Clinical Impression: Radiculopathy of leg Condition: Stable Prescriptions: New tizanidine 2 mg capsule 2 mg PO TID PRN (Reason: muscle spasticity) Qty: 20 0RF ibuprofen 800 mg tablet 800 mg PO Q8H PRN (Reason: pain) Qty: 20 0RF Discontinued clindamycin HCl 300 mg capsule 300 mg PO Q6H hydrocodone-acetaminophen 5-325 mg tablet 1 tab PO Q8H PRN (Reason: pain) Qty: 7 0RF ketorolac 10 mg tablet 10 mg PO TID PRN (Reason: pain) Qty: 10 0RF Discharge Orders: Discharge ED (Routine); Ordered 05/20/23 Ordered By: Amador Connors Referrals: Belle Pavon NP [Primary Care Provider] - Discharge Diet: Usual diet Discharge Activity: Resume usual activity Patient Instructions: Tizanidine (By mouth), Lumbar Radiculopathy (ED) Activity Restrictions/Additional Instructions: No acute abnormalities were noted on your x-ray today The tingling and burning pain in the left upper leg is likely related to radiculopathy from your back. This is when the nerve gets inflamed High-dose ibuprofen and tizanidine have been sent to your pharmacy to help with the pain. Please take this medication as needed. Do not drive or operate heavy machinery while taking tizanidine See provided handout with information about radiculopathy and tizanidine Follow-up with your doctor within the next week for recheck, sooner if needed Return to the emergency department if any rapid worsening symptoms, incontinence, groin numbness, leg weakness, and as needed Coding Level of Care Code ED Erp Business Analyst for Vipul Smith
[2023-05-20] MEDS: ibuprofen 800 mg tablet PO (19:45)
[2023-05-20] MEDS: tizanidine 4 mg Tablet PO (19:45)
[2023-05-20 19:49] VITALS: PULSE 78; RESP 18; O2SAT 98
== END 2023-05-20 19:50 | disposition home or self-care (01) ==
PROVIDERS: Emergency Provider Nurse Practitioner; PCP Nurse Practitioner Family
DX: M54.10 Radiculopathy, site unspecified (principal); F17.290 Nicotine dependence, other tobacco product, uncomplicated
CPT/HCPCS: 73502; 99283